=== PATIENT | female | born 1945 | race Caucasian/White ===

== ENCOUNTER 2020-10-07 20:41 | Emergency (ER) | payer OTHER ==
[~2020-10-07] VITALS: Ht 152.4 cm; Wt 73.5 kg
[2020-10-07 20:50] VITALS: BP_SYST 139
[2020-10-07 21:34] LABS: BILIRUBIN,URINE NEGATIVE (NEGATIVE); COLOR,URINE YELLOW (YELLOW); GLUCOSE,URINE NEGATIVE (NEGATIVE); KETONES,URINE NEGATIVE (NEGATIVE); LEUKOCYTE ESTERASE ,URINE 1+ (NEGATIVE); NITRITE, URINE NEGATIVE (NEGATIVE); PROTEIN URINE 1+ (NEGATIVE); UROBILINOGEN,URINE 0.2 (0.2-1.0)
[2020-10-07 21:46] LABS: BASOPHILS # (AUTO) 0.1 K/uL (0.0-0.2); BASOPHILS % (AUTO) 1.4 % (0.0-2.0); HEMATOCRIT 38.4 % (36-48); HEMOGLOBIN 12.7 g/dL (12.0-16.0); LYMPHOCYTES # (AUTO) 0.9 K/uL (1.0-5.5); LYMPHOCYTES % (AUTO) 16.3 % (20.5-51.5); MEAN CORPUSCULAR HEMOGLOBIN 30 pg (27-31); MEAN CORPUSCULAR HGB CONC 33 % (32-36); MEAN CORPUSCULAR VOLUME 90 fL (79.0-98.0); MONOCYTES # (AUTO) 0.5 K/uL (0.0-1.0); MONOCYTES % (AUTO) 8.1 % (1.7-9.3); NEUTROPHILS # (AUTO) 4.3 K/uL (1.8-7.7); NEUTROPHILS % (AUTO) 74.2 % (40.0-70.0); PLATELET COUNT (AUTO) 149 K/uL (130-430); RED BLOOD CELL COUNT(AUTO) 4.29 MIL/uL (4.2-6.2); RED CELL DISTRIBUTION WIDTH 15.3 % (9.0-15.0); WHITE BLOOD COUNT (AUTO) 5.7 K/uL (4.8-10.8)
[2020-10-07 21:47] LABS: BLOOD, URINE TRACE (NEGATIVE); CLARITY/URINE HAZY (CLEAR)
[2020-10-07 21:57] LABS: BACTERIA,URINE FEW /HPF (None Seen); WBC,URINE 50-80 /HPF (0-3)
[2020-10-07 21:58] LABS: MUCUS,URINE None Seen /LPF (None Seen)
[2020-10-07 22:16] LABS: ACETONE, SERUM NEGATIVE (NEGATIVE)
[2020-10-07 22:21] LABS: ALANINE AMINOTRANSFERASE 33 U/L (12-78); ALBUMIN 3.3 g/dL (3.4-4.8); AMYLASE 95 U/L (0-100); ANION GAP 10 (5-15); ASPARTATE AMINOTRANSFERASE 28 U/L (10-37); CHLORIDE 103 mmol/L (98-107); CREATININE 1.62 mg/dL (0.55-1.30); GLUCOSE 94 mg/dL (70-99); LIPASE 312 U/L (73-393); POTASSIUM 4.2 mmol/L (3.5-5.1); SODIUM SERUM 141 mmol/L (136-145); TOTAL BILIRUBIN 0.6 mg/dL (0.0-1.0); UREA NITROGEN, BLOOD 17 mg/dL (8-21)
[2020-10-07 22:46] VITALS: BP_SYST 139
== END 2020-10-07 22:46 | disposition home or self-care (01) ==
LOC: SED 20:41
DX: E11.65 Type 2 diabetes mellitus with hyperglycemia (principal); I10 Essential (primary) hypertension; N28.9 Disorder of kidney and ureter, unspecified
CPT/HCPCS: 36415; 80053; 81000-TC; 82009-TC; 82150-TC; 82962; 83036; 83605; 83690-TC; 85025; 87086; 99283

== ENCOUNTER 2023-11-06 14:28 | Emergency (ER) | payer OTHER ==
[~2023-11-06] VITALS: Ht 152.4 cm; Wt 63.5 kg
[~2023-11-06 14:28] MED LIST: ACETAMINOPHEN 500 MG TABLET ONE
[2023-11-06 14:41] VITALS: BP_SYST 141; PULSE 85; RESP 15; TEMP 97.5; O2SAT 96
[2023-11-06] MEDS ORDERED: BACITRACIN 1 GM OINT TP ONE (14:54)
[2023-11-06] MEDS: ACETAMINOPHEN 500 MG TABLET PO ONE (15:22)
[2023-11-06] MEDS: BACITRACIN ZINC 15 GM TOPICAL OINTMENT TP ONE (15:53)
[2023-11-06] MEDS ORDERED: IBUP-1969 PO (16:16)
[2023-11-06] MEDS ORDERED: BACI15OI13 TP (16:16)
[2023-11-06 16:31] VITALS: BP_SYST 123; PULSE 68; RESP 16; TEMP 97.2; O2SAT 97
== END 2023-11-06 16:30 | disposition home or self-care (01) ==
LOC: SED 14:28
DX: S00.01XA Abrasion of scalp, initial encounter (principal); E11.9 Type 2 diabetes mellitus without complications; I10 Essential (primary) hypertension; Z79.899 Other long term (current) drug therapy; W01.0XXA Fall on same level from slipping, tripping and stumbling without subsequent striking against object, initial encounter; Y93.89 Activity, other specified; Y92.89 Other specified places as the place of occurrence of the external cause; Y99.8 Other external cause status
CPT/HCPCS: 70450-TC; 82948; 93005; 99284